=== PATIENT | female | born 1980 | race Native Hawaiian/Other Pacific Islander ===

== ENCOUNTER 2020-12-05 07:58 | Outpatient (CLI) | payer OTHER ==
[2020-12-05 08:15] LABS: PLATELET COUNT 201 K/uL (152-353)
== END 2020-12-05 20:59 | disposition home or self-care (01) ==
LOC: LABW 07:58
PROVIDERS: ATTEND Specialist
DX: R78.89 Finding of other specified substances, not normally found in blood (principal); R79.89 Other specified abnormal findings of blood chemistry; D50.9 Iron deficiency anemia, unspecified; E51.9 Thiamine deficiency, unspecified
CPT/HCPCS: 36415; 82607; 82728; 83540; 83550; 84425; 85027

== ENCOUNTER 2021-08-13 16:23 | Outpatient (CLI) | payer OTHER ==
[2021-08-13 16:53] LABS: PLATELET COUNT 226 K/uL (152-353)
== END 2021-08-13 19:02 | disposition home or self-care (01) ==
LOC: LABW 16:23
PROVIDERS: ATTEND Specialist
DX: R79.89 Other specified abnormal findings of blood chemistry (principal); D50.9 Iron deficiency anemia, unspecified; D51.8 Other vitamin B12 deficiency anemias; E51.9 Thiamine deficiency, unspecified
CPT/HCPCS: 36415; 82607; 82728; 83540; 83550; 84425; 85027

== ENCOUNTER 2023-02-19 08:00 | Outpatient (CLI) | payer OTHER | END 2023-02-19 18:53 | disposition home or self-care (01) | LOC: US 08:00 | PROVIDERS: ATTEND Internal Medicine | DX: E04.1 Nontoxic single thyroid nodule (principal) ==

== ENCOUNTER 2023-07-02 15:23 | Outpatient (CLI) | payer OTHER | END 2023-07-02 20:11 | disposition home or self-care (01) | LOC: CT 15:23 | PROVIDERS: ATTEND Internal Medicine | DX: R42 Dizziness and giddiness (principal); R51.9 Headache, unspecified; W19.XXXA Unspecified fall, initial encounter; Y93.89 Activity, other specified; Y92.89 Other specified places as the place of occurrence of the external cause ==